=== PATIENT | male | born 1970 | race Caucasian/White ===

== ENCOUNTER 2022-06-08 08:50 | Outpatient (CLI) | payer OTHER, SELFPAY ==
[2022-06-08 14:43] LABS: Albumin* 4.9 g/dL (3.3-5.0)
[2022-06-08 14:45] LABS: Cholesterol* 131 mg/dL (90-199); Total Protein* 9.1 g/dL (6.0-8.3)
[2022-06-08 14:46] LABS: Alanine Aminotransferase* 64 U/L (4-50); Alkaline Phosphatase* 82 U/L (40-150); Aspartate Amino Transferase* 111 U/L (12-35); Bilirubin Direct* 0.6 mg/dL (0.0-0.5); Bilirubin Total* 1.3 mg/dL (0.1-1.5); HDL Cholesterol* 39 mg/dL (>=40); LDL Cholesterol Calculated 64 mg/dL (<100); Triglycerides* 138 mg/dL (40-149)
[2022-06-08 15:17] LABS: PSA Screen* 0.83 ng/mL (0.10-4.00)
== END 2022-06-08 08:51 | disposition home or self-care (01) ==
PROVIDERS: PCP Family Medicine; Visit Provider Family Medicine
DX: Z00.00 Encounter for general adult medical examination without abnormal findings (principal); F10.10 Alcohol abuse, uncomplicated; I10 Essential (primary) hypertension; R59.0 Localized enlarged lymph nodes; R63.4 Abnormal weight loss; N50.89 Other specified disorders of the male genital organs
CPT/HCPCS: 80061; 80076; 84153; 84443

== ENCOUNTER 2022-06-27 10:42 | Outpatient (CLI) | payer OTHER, SELFPAY ==
--- NOTE | 2022-06-27 11:00 | CRLHL7_ITS ---
For Patients: As a result of the Century Cures Act, medical imaging exams and procedure reports are released immediately into your electronic medical record. You may view this report before your referring provider. If you have questions, please contact your health care provider. Indication: PALP LUMP LT NECK Technique: Grayscale and color Doppler evaluation of the area of concern within the left neck. Comparison: None Findings: Inferior to the left ear lobe there is an area of decreased echogenicity just beneath the skin measuring 9 x 9 x 6 millimeters which likely represents a mildly inflamed lymph node. Normal sized lymph nodes are present elsewhere on the left measuring up to 1.3 x 0.7 x 0.7 cm. For comparison purposes, there is a similar right-sided cervical lymph node measuring 1.2 cm. Impression: Mildly inflamed lymph node inferior to the left ear measuring 9 millimeters. No suspicious lymph nodes. No indication for biopsy. Dictated by Travis Agustin MD @ 06/27/2022 1:13:37 PM (Electronically Signed)
--- NOTE | 2022-06-27 11:00 | CRLHL7_ITS ---
For Patients: As a result of the Century Cures Act, medical imaging exams and procedure reports are released immediately into your electronic medical record. You may view this report before your referring provider. If you have questions, please contact your health care provider. INDICATION: RT TESTICULAR LUMP COMPARISON: none TECHNIQUE: Eduardo scale imaging was performed of the scrotum. In addition color Doppler and spectral Doppler analysis was performed of the testes. FINDINGS: The testes demonstrate normal arterial and venous blood flow on color Doppler and spectral Doppler analysis. No evidence of a suspicious testicular mass or area of inflammation. The right testis measures 4.2 x 2.4 x 3.1 cm in size and the left testis measures 4.1 x 2.2 x 3.2 cm. Incidental foci of calcification noted bilaterally. Small epididymal head cysts are present measuring up to 4 millimeters bilaterally. No evidence of varicocele. Right hydrocele. Right inguinal lymph node corresponds to the area of palpable concern measuring 1.5 x 0.7 x 0.9 cm. IMPRESSION: Right inguinal lymph node corresponds to the area of palpable concern measuring 1.5 x 0.7 x 0.9 cm. This is considered normal in size without suspicious findings. No testicular mass. Small incidental bilateral epididymal head cysts and right hydrocele. Dictated by Travis Agustin MD @ 06/27/2022 12:12:37 PM (Electronically Signed)
--- NOTE | 2022-06-27 11:00 | CRLHL7_ITS ---
For Patients: As a result of the Century Cures Act, medical imaging exams and procedure reports are released immediately into your electronic medical record. You may view this report before your referring provider. If you have questions, please contact your health care provider. Indication: RT THIGH SOFT TISSUE MASS Technique: Grayscale and color Doppler ultrasound examination of the right thigh performed in the area of concern. Comparison: None Findings: There is a circumscribed solid hypoechoic mass within the medial upper right thigh soft tissues. The relationship with the muscles is difficult to ascertain with ultrasound. No significant internal vascularity. This mass measures 8.6 x 3.9 x 5.6 cm. Impression: Large soft tissue mass medial right upper thigh measuring 8.6 x 3.9 x 5.6 cm. Due to its size and difficulty in determining relationship with the adjacent muscles, MRI with and without contrast is recommended for further evaluation. Dictated by Travis Agustin MD @ 06/27/2022 12:28:58 PM (Electronically Signed)
== END 2022-06-27 10:43 | disposition home or self-care (01) ==
LOC: US 10:43
PROVIDERS: PCP Family Medicine; Visit Provider Family Medicine
DX: N50.89 Other specified disorders of the male genital organs (principal); L72.0 Epidermal cyst; R59.0 Localized enlarged lymph nodes; R22.1 Localized swelling, mass and lump, neck; M79.89 Other specified soft tissue disorders
CPT/HCPCS: 76536; 76870; 76882; 93976

== ENCOUNTER 2022-07-10 14:18 | Outpatient (CLI) | payer OTHER, SELFPAY ==
[2022-07-10 23:08] LABS: Albumin* 4.7 g/dL (3.3-5.0)
[2022-07-10 23:11] LABS: Alanine Aminotransferase* 52 U/L (4-50); Alkaline Phosphatase* 71 U/L (40-150); Aspartate Amino Transferase* 53 U/L (12-35); Bilirubin Direct* 0.3 mg/dL (0.0-0.5); Bilirubin Total* 1.3 mg/dL (0.1-1.5); Total Protein* 8.7 g/dL (6.0-8.3)
== END 2022-07-10 14:19 | disposition home or self-care (01) ==
LOC: LKVREF 14:19
PROVIDERS: PCP Family Medicine; Visit Provider Family Medicine
DX: K40.90 Unilateral inguinal hernia, without obstruction or gangrene, not specified as recurrent (principal); N50.89 Other specified disorders of the male genital organs
CPT/HCPCS: 80076

== ENCOUNTER 2022-07-17 12:38 | Outpatient (CLI) | payer OTHER, SELFPAY ==
--- NOTE | 2022-07-17 13:00 | CRLHL7_ITS ---
For Patients: As a result of the Century Cures Act, medical imaging exams and procedure reports are released immediately into your electronic medical record. You may view this report before your referring provider. If you have questions, please contact your health care provider. HISTORY: Thigh mass. TECHNIQUE: MRI right femur without and with IV contrast. 15 mL Dotarem IV. COMPARISON: By ultrasound 06/27/2022. FINDINGS: 11.4 x 5.9 x 4.1 cm fat containing mass in the right adductor longus muscle. Mass majority of the mass is homogeneous fat signal. Approximately 2 mm fixed septation with enhancement in the distal aspect the mass. Few additional very thin intermediate signal septations. No other mass. No enlarged lymph nodes. No muscle atrophy or edema. No focal abnormalities of the right sciatic or femoral nerves. No bone lesions. No marrow edema. No fracture. Small right hydrocele. 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 Dictated by Raman Weinstein MD @ 07/18/2022 12:08:34 PM (Electronically Signed)
== END 2022-07-17 12:39 | disposition home or self-care (01) ==
LOC: MRI 12:39
PROVIDERS: PCP Family Medicine; Visit Provider Surgery
DX: M79.89 Other specified soft tissue disorders (principal); D17.23 Benign lipomatous neoplasm of skin and subcutaneous tissue of right leg; N43.3 Hydrocele, unspecified
CPT/HCPCS: 73720; A9575

== ENCOUNTER 2022-08-10 09:31 | Outpatient (CLI) | payer OTHER, SELFPAY ==
[2022-08-10 14:10] LABS: Chloride* 102 mmol/L (96-114)
[2022-08-10 14:11] LABS: Potassium* 3.8 mmol/L (3.6-5.1); Sodium* 141 mmol/L (135-149)
[2022-08-10 14:13] LABS: Creatinine* 0.9 mg/dL (0.5-1.5); Estimated Glomerular Filt Rate 103 ml/min
[2022-08-10 14:14] LABS: Blood Urea Nitrogen* 11 mg/dL (7-30); Calcium* 9.3 mg/dL (8.4-10.6); Carbon Dioxide* 29 mmol/L (20-32); Glucose* 99 mg/dL (60-115)
[2022-08-14 12:03] LABS: Albumin 4.03 g/dL (3.75-5.01); Alpha 1 Globulin 0.24 g/dL (0.19-0.46); Alpha 2 Globulin 0.75 g/dL (0.48-1.05); Monoclonal Protein 1.44 g/dL; Total Protein, Serum 8.2 g/dL (6.3-8.2)
== END 2022-08-10 09:32 | disposition home or self-care (01) ==
PROVIDERS: PCP Family Medicine; Visit Provider Emergency Medicine
DX: Z01.818 Encounter for other preprocedural examination (principal); R77.8 Other specified abnormalities of plasma proteins
CPT/HCPCS: 80048; 84165

== ENCOUNTER 2022-08-17 07:22 | Day surgery (SDC) | payer OTHER, SELFPAY ==
[2022-08-17] VITALS (12 sets, daily range): BP systolic 129–181; BP diastolic 80–109; PULSE 66–100; RESP 18; TEMP 36.3–36.6; O2SAT 94–97; BMI 24.7
[2022-08-17] MEDS: CEFAZOLIN 2 GM INJ IVP ×2 (07:40→09:11)
[2022-08-17] MEDS: SODIUM CHLORIDE 0.9 % (FLUSH) 10 ML SYRINGE IVF (07:45)
[2022-08-17] MEDS: LACTATED RINGERS 1000 ML 1,000 ML 100 ML IV (07:45)
[2022-08-17] MEDS: BUPIVACAINE 0.25% 30 ML INJECTION (09:40)
--- NOTE | 2022-08-17 10:25 | W.ANESCHARGE ---
Anesthesia Charges Start Date/Time Anesthesia Start Date: 08/17/22 Anesthesia Start Time: 09:00 Stop Date/Time Anesthesia Stop Date: 08/17/22 Anesthesia Stop Time: 10:24
--- NOTE | 2022-08-17 10:38 | PM.GSPRC ---
Operative Note Date of procedure: 08/17/22 Pre-op diagnosis: Right inguinal hernia Post-op diagnosis: Same Type of Procedure: Laparoscopic right inguinal hernia repair Indications: The patient is a 52-year-old male who presents with a symptomatic right inguinal hernia. After discussion of options, he agrees to proceed with repair. Procedure Description: After discussing the risks and benefits of the procedure, the patient signed informed consent.? The operative site was marked and the patient was brought to the operating room and placed on the operating table in supine position.? Care was taken to pad the patient's pressure points.?? The patient was then given sedation by anesthesia.?? The operative site was then prepped and draped in the usual sterile fashion.? A time-out was then performed. A curvilinear incision was made below the umbilicus. Dissection was carried down to subcutaneous tissue until the anterior rectus fascia was encountered. This was incised off the midline to the right. The rectus muscle fibers were then retracted exposing the posterior fascia. A port with a dissecting balloon was then introduced into the pre-preperitoneal space. This was inflated under direct vision. The balloon was deflated, removed, and a 10 mm working port was placed. The space was insufflated and a 10 mm 30-degree scope was then advanced into the space. Two 5 mm ports were placed in the midline under direct vision. Dissection began on the [left/right] side. Jaylen's ligament and the pubic bone were exposed medially. Following this, dissection was carried out laterally. An indirect defect was noted. The sac was dissected free from the cord structures using a combination of sharp and blunt dissection. Once the sac was completely reduced, a piece of Bard 3DMax mesh for the appropriate side was placed into the abdomen. This was positioned with the marker pointed medially. A Tacker was used to attach the mesh medially at Jaylen's ligament and 1 tack laterally with care to avoid the epigastric vessels and stay above the inguinal ligament. An additional tack was placed medial to the epigastric vessel Once this was completed the sac was placed on top of the mesh and the preperitoneal space desufflated under direct vision to ensure the mesh laid flat. 10 mL of 0.5% Marcaine were instilled into the preperitoneal space through a port. The ports were removed. The fascia from the infraumbilical port was closed with 0 Vicryl. The skin incisions were closed with absorbable subcuticular suture. Sterile dressings were then applied. The scrotum was examined to ensure that both testicles were down. Instrument sponge and needle counts were correct at the end of the case. ? The patient was then woken and transported to the recovery area in stable condition. ? The patient tolerated the procedure well. Findings: Large indirect right inguinal hernia Anesthesia: GETA Surgeon: Cyndy Charles MD Estimated blood loss (mL): 5 Condition: stable Disposition: PACU
--- NOTE | 2022-08-17 10:42 | W.ANESCHARGE ---
Anesthesia Charges Start Date/Time Anesthesia Start Date: 08/17/22 Anesthesia Start Time: 09:00 Stop Date/Time Anesthesia Stop Date: 08/17/22 Anesthesia Stop Time: 10:24
--- NOTE | 2022-08-17 10:46 | SUR.PHASEI ---
Pt awake denies pain taking ice chips well v.s.s
== END 2022-08-17 11:50 | disposition home or self-care (01) ==
PROVIDERS: PCP Family Medicine; Visit Provider Surgery
PROC: (CPT 49650; principal; 2022-08-17 08:45)
DX: K40.90 Unilateral inguinal hernia, without obstruction or gangrene, not specified as recurrent (principal)
CPT/HCPCS: 49650; 00830; 00860; C1781; J0330; J0690; J1100; J1885; J2250; J2405; J2704; J2710; J3010; J3490; J7120

== ENCOUNTER 2023-07-26 13:22 | Outpatient (CLI) | payer OTHER, SELFPAY | END 2023-07-26 13:23 | disposition home or self-care (01) | PROVIDERS: PCP Family Medicine; Visit Provider Family Medicine | DX: D75.89 Other specified diseases of blood and blood-forming organs (principal); I10 Essential (primary) hypertension; Z13.220 Encounter for screening for lipoid disorders; Z11.59 Encounter for screening for other viral diseases | CPT/HCPCS: 80053; 80061; 82607; 86334; 86803; G0103 ==

== ENCOUNTER 2024-10-13 16:18 | Outpatient (CLI) | payer OTHER, SELFPAY | END 2024-10-13 16:19 | disposition home or self-care (01) | PROVIDERS: PCP Family Medicine; Visit Provider Family Medicine | DX: R77.8 Other specified abnormalities of plasma proteins (principal); I10 Essential (primary) hypertension; F10.10 Alcohol abuse, uncomplicated; R79.89 Other specified abnormal findings of blood chemistry; Z12.5 Encounter for screening for malignant neoplasm of prostate | CPT/HCPCS: 80053; 80061; 84165; 86334; G0103 ==

== ENCOUNTER 2024-10-23 16:21 | Outpatient (CLI) | payer OTHER, SELFPAY ==
--- NOTE | 2024-10-23 16:45 | CRLHL7_ITS ---
For Patients: As a result of the Century Cures Act, medical imaging exams and procedure reports are released immediately into your electronic medical record. You may view this report before your referring provider. If you have questions, please contact your health care provider. CLINICAL HISTORY: Elevated LFTs COMPARISON: none TECHNIQUE: Real time guy scale imaging and color Doppler analysis was performed of the abdomen. FINDINGS: Liver echotexture is coarsened and increased without intrahepatic mass. The liver measures 19.4 cm. The spleen measures 13.7 x 5.3 x 13.4 cm. The pancreas is incompletely visualized. The proximal abdominal aorta and IVC appear normal. There is no evidence of ascites. The gallbladder is of moderately distended and there are layering echogenic foci within the gallbladder lumen. The gallbladder wall measures 2.4 mm in thickness. The common bile duct measures 5 mm in size within the marielena hepatis. Horseshoe kidney is present. Right renal moiety measures 8.3 cm in length with a cortex measuring 1 cm. Left kidney measures 8.2 cm in length with a cortex measuring 9 millimeters. No hydronephrosis or renal stone. IMPRESSION: Hepatomegaly with hepatic steatosis. Cholelithiasis. Incidental horseshoe kidney. Dictated by Travis Agustin MD @ 10/24/2024 6:44:25 AM (Electronically Signed)
== END 2024-10-23 16:22 | disposition home or self-care (01) ==
LOC: US 16:22
PROVIDERS: PCP Family Medicine; Visit Provider Family Medicine
DX: R79.89 Other specified abnormal findings of blood chemistry (principal); K76.0 Fatty (change of) liver, not elsewhere classified; R16.0 Hepatomegaly, not elsewhere classified
CPT/HCPCS: 76700; 76705

== ENCOUNTER 2024-11-13 16:09 | Outpatient (CLI) | payer OTHER, SELFPAY | END 2024-11-13 16:10 | disposition home or self-care (01) | LOC: LKVREF 16:10 | PROVIDERS: PCP Family Medicine; Visit Provider Family Medicine | DX: I10 Essential (primary) hypertension (principal); F10.10 Alcohol abuse, uncomplicated; R23.3 Spontaneous ecchymoses; R79.89 Other specified abnormal findings of blood chemistry | CPT/HCPCS: 80076; 83520 ==

== ENCOUNTER 2024-11-19 10:48 | Outpatient (CLI) | payer OTHER, SELFPAY | END 2024-11-19 10:49 | disposition home or self-care (01) | LOC: NFLDREF 11-26 15:44 | PROVIDERS: PCP Family Medicine; Referring Provider Family Medicine; Visit Provider Clinical Nurse Specialist | DX: R77.8 Other specified abnormalities of plasma proteins (principal) | CPT/HCPCS: 83520; 84156; 86335 ==

== ENCOUNTER 2024-12-09 09:31 | Outpatient (CLI) | payer OTHER, SELFPAY ==
[2024-12-09 09:49] VITALS: BP 176/111; PULSE 98; RESP 16; TEMP 37.3; O2SAT 98; BMI 26.4
--- NOTE | 2024-12-09 10:29 | P.ANES_ITS ---
Anesthesia Charges Start Date/Time Anesthesia Start Date: 12/09/24 Anesthesia Start Time: 10:38 Stop Date/Time Anesthesia Stop Date: 12/09/24 Anesthesia Stop Time: 11:02 Coding CPT Codes CPT Codes: ANESTH BONE ASPIRATE/BX - 48439 ([id number]) P2 - PATIENT W/MILD SYST DISEASE, QK - GERIATRIC PERSONAL CARE AIDE 2-4 CNCRNT ANES PROC, QX - MYSQL DATABASE ADMINISTRATOR SVC W/ MD MED DIRECTION
--- NOTE | 2024-12-09 10:29 | W.ANESCHARGE ---
Anesthesia Charges Start Date/Time Anesthesia Start Date: 12/09/24 Anesthesia Start Time: 10:38 Stop Date/Time Anesthesia Stop Date: 12/09/24 Anesthesia Stop Time: 11:02 Coding CPT Codes CPT Codes: ANESTH BONE ASPIRATE/BX - 61863 ([id number]) P2 - PATIENT W/MILD SYST DISEASE, QK - TAR CHASER 2-4 CNCRNT ANES PROC, QX - GRILL CHEF SVC W/ MD MED DIRECTION
--- NOTE | 2024-12-09 11:03 | P.ANES_ITS ---
Anesthesia Charges Start Date/Time Anesthesia Start Date: 12/09/24 Anesthesia Start Time: 10:38 Stop Date/Time Anesthesia Stop Date: 12/09/24 Anesthesia Stop Time: 11:02 Coding CPT Codes CPT Codes: ANESTH BONE ASPIRATE/BX - 64721 ([id number]) P2 - PATIENT W/MILD SYST DISEASE, QK - FOUNDRY HAND 2-4 CNCRNT ANES PROC, QX - SPORTS INTERN SVC W/ MD MED DIRECTION
--- NOTE | 2024-12-09 11:03 | W.ANESCHARGE ---
Anesthesia Charges Start Date/Time Anesthesia Start Date: 12/09/24 Anesthesia Start Time: 10:38 Stop Date/Time Anesthesia Stop Date: 12/09/24 Anesthesia Stop Time: 11:02 Coding CPT Codes CPT Codes: ANESTH BONE ASPIRATE/BX - 93375 ([id number]) P2 - PATIENT W/MILD SYST DISEASE, QK - MRI TECHNICIAN 2-4 CNCRNT ANES PROC, QX - IT WEB DEVELOPMENT CONSULTANT SVC W/ MD MED DIRECTION
[2024-12-09 11:04] VITALS: BP 136/84; PULSE 78; RESP 16; O2SAT 97
[2024-12-09 11:05] VITALS: BP 153/90; PULSE 74; RESP 16; O2SAT 98
[2024-12-09 11:13] VITALS: BP 155/90; PULSE 71; RESP 16; O2SAT 98
[2024-12-09 11:17] LABS: Basophils Absolute Auto 0.03 K/uL (0.00-0.30); Basophils Percent Auto 0.6 % (0.0-3.0); Eosinophils Absolute Auto 0.03 K/uL (0.00-0.50); Eosinophils Percent Auto 0.6 % (0.0-7.0); Hematocrit 42.6 % (37.0-53.0); Immature Granulocytes Abs Auto 0.01 K/uL (0.00-0.30); Immature Granulocytes Pct Auto 0.2 %; Immature Reticulocyte Fraction 6.2 % (2.3-13.4); Lymphocytes Absolute Auto 1.04 K/uL (0.90-2.90); Lymphocytes Percent Auto 21.4 % (20-44); Mean Corpuscular HGB Conc 35 gm/dL (32-36); Mean Corpuscular Hemoglobin 35 pg (26-34); Mean Corpuscular Volume 98 fL (80-100); Neutrophils Absolute Auto 3.11 K/uL (1.7-7.0); Neutrophils Percent Auto 64.2 % (42.0-72.0); Platelet Count* 58 K/uL (140-440); Red Blood Count 4.33 m/uL (4.30-5.90); Reticulocyte Hemoglobin Equivi 35.8 pg (29.0-35.0); Reticulocyte Percent 0.9 % (0.5-2.0); Reticulocytes Absolute 0.04 # (0.03-0.08); White Blood Count* 4.85 K/uL (4.50-11.00)
[2024-12-09 11:25] VITALS: BP 168/88; PULSE 68; RESP 16; O2SAT 98
[2024-12-09 11:33] LABS: Slide Review Reflex No
== END 2024-12-09 11:57 | disposition home or self-care (01) ==
PROVIDERS: PCP Family Medicine; Visit Provider Internal Medicine Hematology & Oncology
DX: D47.2 Monoclonal gammopathy (principal); C90.00 Multiple myeloma not having achieved remission; D69.6 Thrombocytopenia, unspecified; K76.0 Fatty (change of) liver, not elsewhere classified
CPT/HCPCS: 01112; 36415; 38222; 85025; 85045; J1644; J2003; J2704

== ENCOUNTER 2024-12-31 15:37 | Outpatient (CLI) | payer OTHER, SELFPAY ==
--- NOTE | 2024-12-31 16:00 | CRLHL7_ITS ---
For Patients: As a result of the Century Cures Act, medical imaging exams and procedure reports are released immediately into your electronic medical record. You may view this report before your referring provider. If you have questions, please contact your health care provider. INDICATION: primary thyroid malignancy COMPARISON: Soft tissue neck ultrasound 06/27/2022 TECHNIQUE: Eduardo scale and color Doppler images were acquired of the thyroid gland. FINDINGS: Solid and cystic nodule left thyroid lobe measures 2.5 x 1.1 x 1.7 cm, TR 3. Thyroid echotexture is heterogeneous elsewhere. Isthmus measures 3.5 millimeters. The right lobe measures 4.6 x 1.0 x 2.2 cm and the left lobe measures 4.3 x 1.8 x 1.9 cm in size. The color Doppler images demonstrate normal vascularity. Hyperechoic structure within the subcutaneous tissues behind the ear measures 1.4 x 0.8 x 1.5 cm, previously measuring 9 millimeters. IMPRESSION: 2.5 cm TR 3 nodule left thyroid lobe. FNA recommended. Incidental lipoma behind the left ear. Dictated by Travis Agustin MD @ 01/01/2025 10:34:26 AM (Electronically Signed)
== END 2024-12-31 15:38 | disposition home or self-care (01) ==
LOC: US 15:38
PROVIDERS: PCP Family Medicine; Visit Provider Internal Medicine Hematology & Oncology
DX: E04.1 Nontoxic single thyroid nodule (principal)
CPT/HCPCS: 76536

== ENCOUNTER 2025-02-05 08:56 | Outpatient (CLI) | payer OTHER, SELFPAY ==
--- NOTE | 2025-02-05 09:15 | CRLHL7_ITS ---
For Patients: As a result of the Century Cures Act, medical imaging exams and procedure reports are released immediately into your electronic medical record. You may view this report before your referring provider. If you have questions, please contact your health care provider. INDICATION : Left thyroid nodule. TECHNIQUE : Ultrasound-guided fine needle aspiration of thyroid nodule. COMPARISON : 12/31/2024 FINDINGS : PROCEDURE: After the informed consent and time-out, multiple fine needle aspirations were obtained from the thyroid nodule. Fine needle performed. 25 gauge needles were used. Six passes. Lidocaine was used for local anesthesia. The preliminary cytology was adequate for interpretation. Real-time imaging was used for guidance and needle placement. Post imaging ultrasound demonstrates no immediate complication. IMPRESSION : Successful fine needle aspiration of left thyroid lobe nodule. Dictated by Travis Agustin MD @ 02/05/2025 10:20:56 AM (Electronically Signed)
== END 2025-02-05 08:57 | disposition home or self-care (01) ==
LOC: US 08:57
PROVIDERS: PCP Family Medicine; Visit Provider Internal Medicine Hematology & Oncology
DX: E04.1 Nontoxic single thyroid nodule (principal); C73 Malignant neoplasm of thyroid gland
CPT/HCPCS: 10005; 76942; 88173

== ENCOUNTER 2025-04-30 15:36 | Outpatient (CLI) | payer OTHER, SELFPAY | END 2025-04-30 15:37 | disposition home or self-care (01) | LOC: NFLDREF 05-01 14:57 | PROVIDERS: PCP Family Medicine; Referring Provider Family Medicine; Visit Provider Internal Medicine Hematology & Oncology | DX: R77.8 Other specified abnormalities of plasma proteins (principal); D69.6 Thrombocytopenia, unspecified | CPT/HCPCS: 80053; 82232; 82784; 83520; 83615; 84155; 84165; 86334 ==

== ENCOUNTER 2025-05-05 14:30 | Outpatient (RCR) | payer OTHER, SELFPAY ==
[2024-12-02 15:32] LABS: Hematocrit* 45.3 % (37.0-53.0); Hemoglobin* 15.7 gm/dL (13.5-17.5); Immature Granulocytes Abs Auto 0.00 K/uL (0.00-0.30); Immature Granulocytes Pct Auto 0.0 %; Lymphocytes Absolute Auto 2.48 K/uL (0.90-2.90); Mean Corpuscular HGB Conc 35 gm/dL (32-36); Mean Corpuscular Hemoglobin 35 pg (26-34); Mean Corpuscular Volume 101 fL (80-100); RDW Coefficient of Variation % 13.4 % (11.5-15.5); Red Blood Count* 4.50 m/uL (4.30-5.90); White Blood Count* 6.41 K/uL (4.50-11.00)
[2024-12-02 15:49] LABS: Slide Review Reflex No
[2024-12-02 16:32] LABS: HIV 1/2/P24 Combo Screen* Negative (Negative)
[2024-12-02 16:35] LABS: INR 1.27 (0.91-1.10); Prothrombin Time 16.8 Seconds
[2024-12-02 17:11] LABS: Vitamin B12* 652 pg/mL (243-894)
[2024-12-04 12:46] LABS: Folate, Serum 3.0 ng/mL (>=5.9)
[2024-12-04 15:05] LABS: Immunoglobulin A 1651 mg/dL (68-408); Immunoglobulin G 1475 mg/dL (768-1632); Immunoglobulin M 59 mg/dL (35-263); Kappa-Lambda Qt FLC W/ Ratio 0.23 (0.26-1.65)
[2024-12-04 22:51] LABS: Beta-2-Microglob Serum/Plasma 2.4 mg/L (0.8-2.4)
[2024-12-05 00:43] LABS: Copper, Serum/Plasma 93.4 ug/dL (70.0-140.0)
[2024-12-05 01:21] LABS: Anti-Nuclear Ab(ANA)IgG ELISA None Detected (None Detected)
== END 2025-05-31 23:59 | disposition home or self-care (01) ==
LOC: CCIC 14:30
PROVIDERS: PCP Family Medicine; Visit Provider Internal Medicine Hematology & Oncology
DX: D47.2 Monoclonal gammopathy (principal); D69.6 Thrombocytopenia, unspecified; C73 Malignant neoplasm of thyroid gland; K76.0 Fatty (change of) liver, not elsewhere classified; R77.8 Other specified abnormalities of plasma proteins; R79.89 Other specified abnormal findings of blood chemistry; I10 Essential (primary) hypertension
CPT/HCPCS: 36415; 82105; 82232; 82525; 82607; 82746; 82784; 83520; 84443; 85025; 85610; 85730; 86038; 86703; 87338; 88184; 88185; 99202; 99205; 99214; 99215; G0463